=== PATIENT | male | born 1970 | race Caucasian/White ===

== ENCOUNTER 2018-03-18 08:05 | Inpatient (IN) | payer MEDICAID ==
[~2018-03-18] VITALS: Ht 190.5 cm; Wt 133.4 kg
[~2018-03-18 08:05] MED LIST: DIVA125T2 PO; HYDR-3307 PO; NAPR-685 PO; PROP10TA PO; SERT50TA5 PO; TRAZ-137 PO
[2018-03-18] MEDS ORDERED: PLEASE ENTER HEIGHT AND WEIGHT MC SCH (08:30)
[2018-03-18] MEDS ORDERED: ONDANSETRON 2MG/ML, 2ML IVPush ONE (08:30)
[2018-03-18] MEDS ORDERED: SODIUM CHLORIDE 0.9% 1,000ML IVBOLUS ONE (08:30)
[2018-03-18 08:50] LABS: BASOPHILS # (AUTO) 0.02 x10^3/uL (0-0.1); BASOPHILS % (AUTO) 0 % (0-1); EOSINOPHILS # (AUTO) 0.02 x10^3/uL (0-0.4); EOSINOPHILS % (AUTO) 0 % (1-7); LYMPHOCYTES # (AUTO) 1.45 x10^3/uL (1-3.4); LYMPHOCYTES % (AUTO) 12 % (22-44); MD NO; MEAN CORPUSCULAR HEMOGLOBIN 30.1 pg (27.5-34.5); MEAN CORPUSCULAR HGB CONC 33.9 g/dL (33.2-36.2); MEAN CORPUSCULAR VOLUME 88.7 fL (81-97); MEAN PLATELET VOLUME 8.2 fL (7.4-10.4); MONOCYTES # (AUTO) 0.81 x10^3/uL (0.2-0.8); MONOCYTES % (AUTO) 7 % (2-9); NEUTROPHILS # (AUTO) 9.76 x10^3/uL (1.8-6.8); NEUTROPHILS % (AUTO) 81 % (42-75); PLATELET COUNT 289 x10^3/uL (130-400); RED BLOOD COUNT 4.89 x10^6/uL (4.38-5.82); RED CELL DISTRIBUTION WIDTH 13.8 % (9.4-14.8)
[2018-03-18] MEDS ORDERED: ONDANSETRON 2MG/ML, 2ML ONE (08:56)
[2018-03-18 09:01] LABS: AMPHETAMINE SCREEN, URINE Negative (Negative); BARBITURATE SCREEN, URINE Negative (Negative); BENZODIAZEPINE SCREEN, URINE Positive (Negative); CANNABINOID SCREEN, URINE Positive (Negative); COCAINE SCREEN, URINE Negative (Negative); METHADONE SCREEN, URINE Negative (Negative); OPIATE SCREEN, URINE Negative (Negative)
[2018-03-18 09:03] LABS: ALBUMIN 3.5 g/dL (3.4-5.0); ANION GAP 8 mmol/L (5-15); CALCIUM 8.3 mg/dL (8.5-10.1); CHLORIDE 97 mmol/L (98-107); CREATININE 1.85 mg/dL (0.7-1.3)
[2018-03-18 09:06] LABS: MICROSCOPIC INDICATED
[2018-03-18 09:08] LABS: ALKALINE PHOSPHATASE 102 U/L (45-117); BILIRUBIN,TOTAL 0.6 mg/dL (0.2-1.0); FREE T4 (FREE THYROXINE) 0.93 ng/dL (0.76-1.46); TOTAL PROTEIN 8.7 g/dL (6.4-8.2)
[2018-03-18 09:20] LABS: CULTURE INDICATED? NO
[2018-03-18] MEDS ORDERED: OMNIPAQUE 350 MG/ML, 150 ML BOTTLE ONE (09:35)
[2018-03-18 09:36] LABS: ALANINE AMINOTRANSFERASE 6238 U/L (12-78)
[2018-03-18] MEDS ORDERED: HEPARIN 5,000 UNITS/ML, 1ML IV ONE (10:00)
[2018-03-18 10:49] LABS: ACETAMINOPHEN < 2 mcg/mL (10-30); SALICYLATE LEVEL < 1.7 mg/dL (2.8-20.0)
[2018-03-18 10:54] LABS: CREATINE KINASE, TOTAL 167 U/L (39-308)
[2018-03-18] MEDS ORDERED: HEPARIN 25,000 UNITS/500ML PMX 500 ML ONE (10:54)
[2018-03-18] MEDS ORDERED: HEPARIN 5,000 UNITS/ML, 1ML ONE (10:54)
[2018-03-18] MEDS: HEPARIN 5,000 UNITS/ML, 1ML IV PRN ×2 (11:10→18:09)
[2018-03-18] MEDS: HEPARIN 25,000 UNITS/500ML PMX 500 ML IV PRN (11:13)
[2018-03-18] MEDS ORDERED: POLYETHYLENE GLYCOL 17 GM PACKET PO PRN (12:00)
[2018-03-18] MEDS ORDERED: BISACODYL 10 MG SUPP PR PRN (12:00)
[2018-03-18] MEDS ORDERED: ONDANSETRON ODT 4 MG PO PRN (12:00)
[2018-03-18] MEDS ORDERED: ONDANSETRON 2MG/ML, 2ML IVPush PRN (12:00)
[2018-03-18] MEDS ORDERED: morphine SULFATE 10 MG/ML, 1ML IVPush PRN (12:00)
[2018-03-18 12:58] LABS: CREATINE KINASE, TOTAL 162 U/L (39-308)
[2018-03-18 12:59] LABS: ACETAMINOPHEN < 2 mcg/mL (10-30); SALICYLATE LEVEL < 1.7 mg/dL (2.8-20.0)
[2018-03-18 13:29] LABS: O2 FLOW 6 L/min
[2018-03-18 13:42] LABS: ALBUMIN 3.2 g/dL (3.4-5.0); BILIRUBIN, DIRECT 0.3 mg/dL (0.1-0.2)
[2018-03-18 13:59] LABS: BILIRUBIN,INDIRECT 0.4 mg/dL (0.0-2.0); BILIRUBIN,TOTAL 0.7 mg/dL (0.2-1.0); TOTAL PROTEIN 8.1 g/dL (6.4-8.2)
[2018-03-18 14:30] VITALS: BP 122/68
[2018-03-18] MEDS: SODIUM CHLORIDE 0.9% 1,000 ML IV SCH (15:48)
[2018-03-18] MEDS: LACTULOSE 20 GM/30 ML UDC PO SCH ×2 (16:19→21:00)
[2018-03-18] MEDS ORDERED: CEFTRIAXONE 1,000 MG IV SCH (18:00)
[2018-03-18] MEDS ORDERED: CEFTRIAXONE PMX 1GM/50ML 50 ML IV SCH (18:00)
[2018-03-18] MEDS: DOXYCYCLINE 100 MG in DEXTROSE 5% 250 ML IV SCH (19:08)
[2018-03-18] MEDS ORDERED: FAMOTIDINE 20 MG TABLET PO SCH (21:00)
[2018-03-18] MEDS ORDERED: TRAZODONE 150MG TABLET PO SCH (21:00)
[2018-03-18] MEDS ORDERED: DIVALPROEX 125 MG TABLET.DR PO SCH (21:00)
[2018-03-19] MEDS: SODIUM CHLORIDE 0.9% 1,000 ML IV SCH ×4 (01:35→20:05)
[2018-03-19] MEDS: HEPARIN 5,000 UNITS/ML, 1ML IV PRN ×2 (01:55→10:27)
[2018-03-19 04:44] LABS: BASOPHILS # (AUTO) 0.03 x10^3/uL (0-0.1); BASOPHILS % (AUTO) 0 % (0-1); EOSINOPHILS # (AUTO) 0.36 x10^3/uL (0-0.4); EOSINOPHILS % (AUTO) 4 % (1-7); LYMPHOCYTES # (AUTO) 1.43 x10^3/uL (1-3.4); LYMPHOCYTES % (AUTO) 17 % (22-44); MD NO; MEAN CORPUSCULAR HEMOGLOBIN 30.3 pg (27.5-34.5); MEAN CORPUSCULAR HGB CONC 33.7 g/dL (33.2-36.2); MEAN CORPUSCULAR VOLUME 89.8 fL (81-97); MEAN PLATELET VOLUME 7.9 fL (7.4-10.4); MONOCYTES # (AUTO) 0.28 x10^3/uL (0.2-0.8); MONOCYTES % (AUTO) 3 % (2-9); NEUTROPHILS # (AUTO) 6.55 x10^3/uL (1.8-6.8); NEUTROPHILS % (AUTO) 76 % (42-75); PLATELET COUNT 243 x10^3/uL (130-400); RED CELL DISTRIBUTION WIDTH 13.6 % (9.4-14.8)
[2018-03-19 04:51] LABS: INTERNATIONAL NORMALIZED RATIO 1.27 (0.93-1.1); PROTHROMBIN TIME 13.1 Seconds (9.6-11.5)
[2018-03-19 04:56] LABS: ALBUMIN 2.9 g/dL (3.4-5.0); ANION GAP 4 mmol/L (5-15); CALCIUM 7.8 mg/dL (8.5-10.1); CHLORIDE 101 mmol/L (98-107)
[2018-03-19] MEDS: HEPARIN 25,000 UNITS/500ML PMX 500 ML IV PRN ×2 (05:03→17:31)
[2018-03-19 05:14] LABS: ALANINE AMINOTRANSFERASE 4565 U/L (12-78); ALKALINE PHOSPHATASE 93 U/L (45-117); BILIRUBIN,TOTAL 0.8 mg/dL (0.2-1.0); CHOL/HDL RATIO 4.6; CHOLESTEROL, TOTAL 97 mg/dL (140-239); CREATININE 0.79 mg/dL (0.7-1.3); HDL CHOL % 22 % (26-37); HDL CHOLESTEROL (DIRECT) 21 mg/dL (40-60); LDL CHOLESTEROL,CALCULATED 44 mg/dL (54-169); LDL/HDL RATIO 2.1 (0.5-3.0); TOTAL PROTEIN 7.5 g/dL (6.4-8.2); TRIGLYCERIDES 162 mg/dL (50-200); VLDL CHOLESTEROL 32 mg/dL (0-25)
[2018-03-19] MEDS: ASPIRIN 325 MG TABLET EC PO SCH (06:00)
[2018-03-19] MEDS: DOXYCYCLINE 100 MG in DEXTROSE 5% 250 ML IV SCH (07:14)
[2018-03-19] MEDS: SENNA/DOCUSATE TABLET PO SCH (08:16)
[2018-03-19] MEDS: LACTULOSE 20 GM/30 ML UDC PO SCH ×2 (08:17→20:13)
[2018-03-19] MEDS ORDERED: POTASSIUM PHOSPHATE 44 MEQ in SODIUM CHLORIDE 0.9% 500 ML IV ONE (11:00)
[2018-03-19] MEDS: OXYcodone IR 5MG TABLET PO PRN ×4 (11:45→22:07)
[2018-03-19 19:09] VITALS: BP 143/79
[2018-03-19] MEDS: PROPRANOLOL 10 MG TABLET PO SCH (20:13)
[2018-03-20 00:01] VITALS: BP 123/71
[2018-03-20] MEDS: HEPARIN 5,000 UNITS/ML, 1ML IV PRN (00:10)
[2018-03-20] MEDS: SODIUM CHLORIDE 0.9% 1,000 ML IV SCH ×2 (03:25→13:30)
[2018-03-20] MEDS: OXYcodone IR 5MG TABLET PO PRN ×4 (05:39→23:45)
[2018-03-20] MEDS: ASPIRIN 325 MG TABLET EC PO SCH (05:39)
[2018-03-20 06:24] LABS: BASOPHILS # (AUTO) 0.02 x10^3/uL (0-0.1); BASOPHILS % (AUTO) 0 % (0-1); EOSINOPHILS # (AUTO) 0.71 x10^3/uL (0-0.4); EOSINOPHILS % (AUTO) 8 % (1-7); LYMPHOCYTES # (AUTO) 1.86 x10^3/uL (1-3.4); LYMPHOCYTES % (AUTO) 21 % (22-44); MD NO; MEAN CORPUSCULAR HEMOGLOBIN 30.8 pg (27.5-34.5); MEAN CORPUSCULAR HGB CONC 34.4 g/dL (33.2-36.2); MEAN CORPUSCULAR VOLUME 89.3 fL (81-97); MEAN PLATELET VOLUME 7.8 fL (7.4-10.4); MONOCYTES # (AUTO) 0.38 x10^3/uL (0.2-0.8); MONOCYTES % (AUTO) 4 % (2-9); NEUTROPHILS # (AUTO) 5.96 x10^3/uL (1.8-6.8); NEUTROPHILS % (AUTO) 67 % (42-75); PLATELET COUNT 240 x10^3/uL (130-400); RED BLOOD COUNT 4.41 x10^6/uL (4.38-5.82); RED CELL DISTRIBUTION WIDTH 13.3 % (9.4-14.8)
[2018-03-20 06:28] LABS: ALBUMIN 2.7 g/dL (3.4-5.0); ANION GAP 5 mmol/L (5-15); CALCIUM 8.1 mg/dL (8.5-10.1); CHLORIDE 101 mmol/L (98-107); CREATININE 0.68 mg/dL (0.7-1.3)
[2018-03-20 06:36] LABS: ALANINE AMINOTRANSFERASE 2845 U/L (12-78); ALKALINE PHOSPHATASE 86 U/L (45-117); BILIRUBIN,TOTAL 0.9 mg/dL (0.2-1.0); TOTAL PROTEIN 7.4 g/dL (6.4-8.2)
[2018-03-20] MEDS: HEPARIN 25,000 UNITS/500ML PMX 500 ML IV PRN (07:53)
[2018-03-20 08:08] VITALS: BP 127/73
[2018-03-20] MEDS: LACTULOSE 20 GM/30 ML UDC PO SCH ×2 (09:35→19:48)
[2018-03-20] MEDS: PROPRANOLOL 10 MG TABLET PO SCH ×2 (09:35→19:48)
[2018-03-20] MEDS: SENNA/DOCUSATE TABLET PO SCH (09:35)
[2018-03-20] MEDS ORDERED: DIAZEPAM 5 MG/ML, 2ML IV ONE (13:30)
[2018-03-20 14:19] VITALS: BP 124/73
[2018-03-20 19:25] VITALS: BP 142/84
[2018-03-21] VITALS: BP 131/83
[2018-03-21 04:06] VITALS: BP 136/73
[2018-03-21] MEDS: LORazepam 1MG TABLET PO PRN (04:07)
[2018-03-21] MEDS: ASPIRIN 325 MG TABLET EC PO SCH (05:03)
[2018-03-21 05:55] LABS: ALBUMIN 2.9 g/dL (3.4-5.0); ANION GAP 5 mmol/L (5-15); CALCIUM 8.6 mg/dL (8.5-10.1); CHLORIDE 101 mmol/L (98-107)
[2018-03-21 06:04] LABS: ALANINE AMINOTRANSFERASE 2032 U/L (12-78); ALKALINE PHOSPHATASE 92 U/L (45-117); BILIRUBIN,TOTAL 1.1 mg/dL (0.2-1.0); CREATININE 0.67 mg/dL (0.7-1.3); TOTAL PROTEIN 7.5 g/dL (6.4-8.2)
[2018-03-21] MEDS ORDERED: REGADENOSON 0.4 MG/5 ML SYRINGE ONE (08:45)
[2018-03-21 08:47] VITALS: BP 128/76
[2018-03-21] MEDS: OXYcodone IR 5MG TABLET PO PRN ×3 (11:07→21:37)
[2018-03-21] MEDS: LACTULOSE 20 GM/30 ML UDC PO SCH ×2 (11:07→21:37)
[2018-03-21] MEDS: PROPRANOLOL 10 MG TABLET PO SCH ×2 (11:08→21:37)
[2018-03-21] MEDS: SENNA/DOCUSATE TABLET PO SCH (11:08)
[2018-03-21 15:52] VITALS: BP 128/75
[2018-03-21 19:00] VITALS: BP 119/67
[2018-03-22 02:13] VITALS: BP 104/63
[2018-03-22 04:51] LABS: ALBUMIN 2.9 g/dL (3.4-5.0); ANION GAP 6 mmol/L (5-15); CALCIUM 8.8 mg/dL (8.5-10.1); CHLORIDE 103 mmol/L (98-107); CREATININE 0.85 mg/dL (0.7-1.3)
[2018-03-22 05:04] LABS: ALANINE AMINOTRANSFERASE 1464 U/L (12-78); ALKALINE PHOSPHATASE 102 U/L (45-117); BILIRUBIN,TOTAL 0.8 mg/dL (0.2-1.0); TOTAL PROTEIN 8.2 g/dL (6.4-8.2)
[2018-03-22] MEDS: ASPIRIN 325 MG TABLET EC PO SCH (06:21)
[2018-03-22] MEDS: OXYcodone IR 5MG TABLET PO PRN ×2 (06:25→21:54)
[2018-03-22 06:55] VITALS: BP 131/80
[2018-03-22] MEDS: LACTULOSE 20 GM/30 ML UDC PO SCH ×4 (07:52→21:53)
[2018-03-22] MEDS: PROPRANOLOL 10 MG TABLET PO SCH ×2 (07:52→21:53)
[2018-03-22] MEDS: SENNA/DOCUSATE TABLET PO SCH (07:52)
[2018-03-22] MEDS: LORazepam 1MG TABLET PO PRN (11:52)
[2018-03-22] MEDS ORDERED: MINERA CRM, 60GM TP PRN (13:00)
[2018-03-22 13:18] VITALS: BP 121/78
[2018-03-22] MEDS ORDERED: FENTANYL PF 100 MCG/2ML ONE ×2 (14:09→14:10)
[2018-03-22] MEDS ORDERED: MIDAZOLAM 1 MG/ML, 5ML ONE ×2 (14:10)
[2018-03-22] MEDS ORDERED: NALOXONE 1 MG/ML, 2ML ONE (14:10)
[2018-03-22] MEDS ORDERED: FLUMAZENIL 0.1 MG/1 ML, 5ML ONE (14:10)
[2018-03-22] MEDS ORDERED: GADOBUTROL 10 MMOL/10 ML VIAL ONE (17:56)
[2018-03-22 19:00] VITALS: BP 121/76
[2018-03-23 01:14] VITALS: BP 116/79
[2018-03-23 05:26] LABS: BASOPHILS # (AUTO) 0.04 x10^3/uL (0-0.1); BASOPHILS % (AUTO) 0 % (0-1); EOSINOPHILS # (AUTO) 0.73 x10^3/uL (0-0.4); EOSINOPHILS % (AUTO) 8 % (1-7); LYMPHOCYTES # (AUTO) 2.36 x10^3/uL (1-3.4); LYMPHOCYTES % (AUTO) 24 % (22-44); MD NO; MEAN CORPUSCULAR HEMOGLOBIN 30.6 pg (27.5-34.5); MEAN CORPUSCULAR HGB CONC 34.4 g/dL (33.2-36.2); MEAN CORPUSCULAR VOLUME 89.2 fL (81-97); MEAN PLATELET VOLUME 7.4 fL (7.4-10.4); MONOCYTES # (AUTO) 0.63 x10^3/uL (0.2-0.8); MONOCYTES % (AUTO) 7 % (2-9); NEUTROPHILS # (AUTO) 5.93 x10^3/uL (1.8-6.8); NEUTROPHILS % (AUTO) 61 % (42-75); PLATELET COUNT 263 x10^3/uL (130-400); RED BLOOD COUNT 4.82 x10^6/uL (4.38-5.82); RED CELL DISTRIBUTION WIDTH 13.8 % (9.4-14.8)
[2018-03-23] MEDS: OXYcodone IR 5MG TABLET PO PRN ×3 (05:29→21:16)
[2018-03-23] MEDS: ASPIRIN 325 MG TABLET EC PO SCH (05:29)
[2018-03-23 05:35] LABS: INTERNATIONAL NORMALIZED RATIO 1.13 (0.93-1.1); PROTHROMBIN TIME 11.7 Seconds (9.6-11.5)
[2018-03-23 05:38] LABS: ALBUMIN 3.2 g/dL (3.4-5.0); ANION GAP 6 mmol/L (5-15); CALCIUM 8.8 mg/dL (8.5-10.1); CHLORIDE 102 mmol/L (98-107)
[2018-03-23 05:47] LABS: ALANINE AMINOTRANSFERASE 1122 U/L (12-78); ALKALINE PHOSPHATASE 95 U/L (45-117); BILIRUBIN,TOTAL 0.8 mg/dL (0.2-1.0); CREATININE 0.83 mg/dL (0.7-1.3)
[2018-03-23 07:49] VITALS: BP 97/59
[2018-03-23] MEDS: LACTULOSE 20 GM/30 ML UDC PO SCH ×3 (08:49→21:16)
[2018-03-23] MEDS: PROPRANOLOL 10 MG TABLET PO SCH ×2 (08:49→21:16)
[2018-03-23] MEDS: SENNA/DOCUSATE TABLET PO SCH (08:49)
[2018-03-23] MEDS: ARIPIPRAZOLE 10 MG TABLET PO SCH (12:18)
[2018-03-23 12:24] VITALS: BP 118/80
[2018-03-23 17:38] VITALS: BP 106/69
[2018-03-24 02:07] VITALS: BP 133/77
[2018-03-24] MEDS: ASPIRIN 325 MG TABLET EC PO SCH (05:28)
[2018-03-24 05:33] LABS: ALBUMIN 3.1 g/dL (3.4-5.0); ANION GAP 8 mmol/L (5-15); CALCIUM 9.1 mg/dL (8.5-10.1); CHLORIDE 104 mmol/L (98-107)
[2018-03-24 05:38] LABS: ALANINE AMINOTRANSFERASE 792 U/L (12-78); ALKALINE PHOSPHATASE 88 U/L (45-117); BILIRUBIN,TOTAL 0.6 mg/dL (0.2-1.0); CREATININE 0.78 mg/dL (0.7-1.3); TOTAL PROTEIN 8.3 g/dL (6.4-8.2)
[2018-03-24 08:00] VITALS: BP 113/72
[2018-03-24] MEDS: SENNA/DOCUSATE TABLET PO SCH ×2 (09:00→09:24)
[2018-03-24] MEDS: ARIPIPRAZOLE 10 MG TABLET PO SCH (09:23)
[2018-03-24] MEDS: LACTULOSE 20 GM/30 ML UDC PO SCH ×3 (09:23→20:07)
[2018-03-24] MEDS: LORazepam 1MG TABLET PO PRN (09:24)
[2018-03-24] MEDS: PROPRANOLOL 10 MG TABLET PO SCH ×2 (09:24→20:07)
[2018-03-24] MEDS: OXYcodone IR 5MG TABLET PO PRN ×2 (09:24→19:27)
[2018-03-24 13:54] VITALS: BP 117/68
[2018-03-24] MEDS ORDERED: ASPI-650 PO (17:49)
[2018-03-24] MEDS ORDERED: LACT20SO13 PO (17:49)
[2018-03-24] MEDS ORDERED: LORA-446 PO (17:49)
[2018-03-24] MEDS ORDERED: ARIP10TA33 PO (17:49)
[2018-03-24 19:19] VITALS: BP 115/75
[2018-03-25 02:01] VITALS: BP 123/79
[2018-03-25] MEDS: ASPIRIN 325 MG TABLET EC PO SCH (05:07)
[2018-03-25 06:27] LABS: ALBUMIN 3.1 g/dL (3.4-5.0); ANION GAP 9 mmol/L (5-15); CALCIUM 9.4 mg/dL (8.5-10.1); CHLORIDE 105 mmol/L (98-107)
[2018-03-25 06:33] LABS: ALANINE AMINOTRANSFERASE 557 U/L (12-78); ALKALINE PHOSPHATASE 83 U/L (45-117); BILIRUBIN,TOTAL 0.5 mg/dL (0.2-1.0); CREATININE 0.88 mg/dL (0.7-1.3); TOTAL PROTEIN 8.2 g/dL (6.4-8.2)
== END 2018-03-25 06:10 | DRG 441 ==
LOC: ED 10:47 → EDIP 11:22 → ICU 14:25 → 5SO 03-19 18:48 → 3NE 03-23 16:43
PROVIDERS: ADMIT Internal Medicine; ATTEND Internal Medicine
PROC: 5A09357 Assistance with Respiratory Ventilation, Less than 24 Consecutive Hours, Continuous Positive Airway Pressure (ICD-10-PCS; principal; 2018-03-18)
DX: K72.00 Acute and subacute hepatic failure without coma (principal); I21.4 Non-ST elevation (NSTEMI) myocardial infarction; G93.41 Metabolic encephalopathy; J96.01 Acute respiratory failure with hypoxia; N17.0 Acute kidney failure with tubular necrosis; E87.2 Acidosis; J98.11 Atelectasis; B19.20 Unspecified viral hepatitis C without hepatic coma; D18.03 Hemangioma of intra-abdominal structures; E66.9 Obesity, unspecified; Z68.36 Body mass index [BMI] 36.0-36.9, adult; E78.5 Hyperlipidemia, unspecified; F10.21 Alcohol dependence, in remission; F12.90 Cannabis use, unspecified, uncomplicated; F15.90 Other stimulant use, unspecified, uncomplicated; F31.9 Bipolar disorder, unspecified; G89.4 Chronic pain syndrome; Z96.612 Presence of left artificial shoulder joint; Z96.659 Presence of unspecified artificial knee joint; I11.9 Hypertensive heart disease without heart failure; J06.9 Acute upper respiratory infection, unspecified; T50.995A Adverse effect of other drugs, medicaments and biological substances, initial encounter; F29 Unspecified psychosis not due to a substance or known physiological condition; F39 Unspecified mood [affective] disorder; K71.9 Toxic liver disease, unspecified; K75.89 Other specified inflammatory liver diseases; K76.0 Fatty (change of) liver, not elsewhere classified; Z59.0 Homelessness; Z79.899 Other long term (current) drug therapy; Z81.1 Family history of alcohol abuse and dependence; Z81.8 Family history of other mental and behavioral disorders; Z87.01 Personal history of pneumonia (recurrent); Z87.891 Personal history of nicotine dependence; Z90.49 Acquired absence of other specified parts of digestive tract; Y92.89 Other specified places as the place of occurrence of the external cause
CPT/HCPCS: 36415; 36600; 70450; 71045; 71275; 74183; 76700; 78452; 80053; 80061; 80074; 80076; 80164; 80307; 80329; 81001; 82140; 82550; 82803; 83605; 83690; 83735; 84100; 84145; 84439; 84443; 84484; 85025; 85520; 85610; 87040; 87081; 87521; 87806; 93005; 93017; 96361; 96374; 96375; A9585; C8929; G0378; J0696; J1644; J2250; J2405; J2785; J3010; J3360; J7060; Q9957; Q9967; A9502; C9898; G0475; G0480; J2270; J2310; J7030; J7040

== ENCOUNTER 2018-03-24 15:58 | Inpatient (IN) | payer MEDICAID ==
[~2018-03-24] VITALS: Ht 190.5 cm; Wt 131.8 kg
[2018-03-24] MEDS ORDERED: POLYETHYLENE GLYCOL 17 GM PACKET PO PRN (17:00)
[2018-03-24] MEDS ORDERED: LORA-446 PO (17:49)
[2018-03-24] MEDS ORDERED: LACT20SO13 PO (17:49)
[2018-03-24] MEDS ORDERED: ARIP10TA33 PO (17:49)
[2018-03-24] MEDS ORDERED: ASPI-650 PO (17:49)
[2018-03-25 06:18] VITALS: BP_SYST 120; BP_SYST 123; BP_SYST 137; BP_DIAS 72; BP_DIAS 77; BP_DIAS 78
[2018-03-25] MEDS: PLEASE ENTER HEIGHT AND WEIGHT MC SCH ×2 (06:24→06:26)
[2018-03-25 07:26] LABS: CHOL/HDL RATIO 8.4; FREE T4 (FREE THYROXINE) 1.07 ng/dL (0.76-1.46); LDL/HDL RATIO 5.5 (0.5-3.0); THYROID STIMULATING HORMONE 7.54 mIU/L (0.358-3.740)
[2018-03-25 07:28] VITALS: BP 122/78
[2018-03-25 10:21] VITALS: BP 120/77
[2018-03-25] MEDS: PROPRANOLOL 10 MG TABLET PO SCH ×2 (11:21→20:18)
[2018-03-25] MEDS ORDERED: OXYcodone IR 5MG TABLET PO ONE (11:30)
[2018-03-25 19:20] VITALS: BP 111/72
[2018-03-25] MEDS: TRAZODONE 50MG TABLET PO PRN ×2 (19:46→23:14)
[2018-03-26 08:28] VITALS: BP 123/79
[2018-03-26] MEDS: PROPRANOLOL 10 MG TABLET PO SCH ×2 (09:06→19:53)
[2018-03-26] MEDS: ARIPIPRAZOLE 10 MG TABLET PO SCH (09:06)
[2018-03-26] MEDS: NICOTINE 14MG/24 HR PATCH.TD24 TD SCH (09:06)
[2018-03-26] MEDS: OXYcodone IR 5MG TABLET PO PRN ×3 (11:34→19:53)
[2018-03-26 19:43] VITALS: BP 104/67
[2018-03-26] MEDS: TRAZODONE 50MG TABLET PO PRN (19:53)
[2018-03-26] MEDS: DOCUSATE 100 MG CAPSULE PO PRN (19:59)
[2018-03-27 07:16] VITALS: BP 110/73
[2018-03-27] MEDS: ARIPIPRAZOLE 10 MG TABLET PO SCH (08:22)
[2018-03-27] MEDS: OXYcodone IR 5MG TABLET PO PRN ×4 (08:22→20:20)
[2018-03-27] MEDS: PROPRANOLOL 10 MG TABLET PO SCH ×2 (08:22→20:21)
[2018-03-27] MEDS: NICOTINE 14MG/24 HR PATCH.TD24 TD SCH (08:22)
[2018-03-27 19:30] VITALS: BP 137/87
[2018-03-27] MEDS: DOCUSATE 100 MG CAPSULE PO PRN (20:20)
[2018-03-27] MEDS: TRAZODONE 50MG TABLET PO PRN (20:20)
[2018-03-28] MEDS: ACETAMINOPHEN 325 MG TABLET PO PRN ×2 (00:57→18:19)
[2018-03-28 07:55] VITALS: BP 128/87
[2018-03-28] MEDS: OXYcodone IR 5MG TABLET PO PRN ×3 (08:34→20:37)
[2018-03-28] MEDS: ARIPIPRAZOLE 10 MG TABLET PO SCH (08:34)
[2018-03-28] MEDS: PROPRANOLOL 10 MG TABLET PO SCH ×2 (08:34→20:37)
[2018-03-28] MEDS: NICOTINE 14MG/24 HR PATCH.TD24 TD SCH (08:34)
[2018-03-28] MEDS: DOCUSATE 100 MG CAPSULE PO PRN (11:15)
[2018-03-28 19:55] VITALS: BP 105/64
[2018-03-28] MEDS: TRAZODONE 50MG TABLET PO PRN (20:37)
[2018-03-29 07:51] VITALS: BP 148/89
[2018-03-29] MEDS: ARIPIPRAZOLE 10 MG TABLET PO SCH (08:13)
[2018-03-29] MEDS: PROPRANOLOL 10 MG TABLET PO SCH ×2 (08:14→20:18)
[2018-03-29] MEDS: NICOTINE 14MG/24 HR PATCH.TD24 TD SCH (08:14)
[2018-03-29] MEDS: OXYcodone IR 5MG TABLET PO PRN ×3 (08:16→20:19)
[2018-03-29] MEDS: ACETAMINOPHEN 325 MG TABLET PO PRN (11:42)
[2018-03-29 19:31] VITALS: BP 115/78
[2018-03-29] MEDS: TRAZODONE 50MG TABLET PO PRN (20:18)
[2018-03-30] MEDS: OXYcodone IR 5MG TABLET PO PRN ×3 (05:30→17:58)
[2018-03-30 07:45] VITALS: BP 109/78
[2018-03-30] MEDS: NICOTINE 14MG/24 HR PATCH.TD24 TD SCH (08:56)
[2018-03-30] MEDS: PROPRANOLOL 10 MG TABLET PO SCH ×2 (08:56→20:09)
[2018-03-30] MEDS: ARIPIPRAZOLE 10 MG TABLET PO SCH (08:56)
[2018-03-30 19:49] VITALS: BP 124/77
[2018-03-30] MEDS: TRAZODONE 50MG TABLET PO PRN (20:09)
[2018-03-31] MEDS: OXYcodone IR 5MG TABLET PO PRN ×2 (01:14→08:33)
[2018-03-31 07:58] VITALS: BP 108/70
[2018-03-31] MEDS: PROPRANOLOL 10 MG TABLET PO SCH (08:23)
[2018-03-31] MEDS: ARIPIPRAZOLE 10 MG TABLET PO SCH (08:23)
[2018-03-31] MEDS: NICOTINE 14MG/24 HR PATCH.TD24 TD SCH (08:23)
[2018-03-31] MEDS ORDERED: TRAZ-137 PO ×2 (11:18→11:45)
[2018-03-31] MEDS ORDERED: NICO-486 TD (11:45)
== END 2018-03-31 15:15 | disposition home or self-care (01) | DRG 885 ==
LOC: 3E 16:44
PROVIDERS: ADMIT Psychiatry & Neurology Psychosomatic Medicine; ATTEND Psychiatry & Neurology Psychosomatic Medicine
DX: F31.9 Bipolar disorder, unspecified (principal); D18.03 Hemangioma of intra-abdominal structures; B19.20 Unspecified viral hepatitis C without hepatic coma; E66.9 Obesity, unspecified; E78.5 Hyperlipidemia, unspecified; F10.20 Alcohol dependence, uncomplicated; F41.9 Anxiety disorder, unspecified; G47.00 Insomnia, unspecified; G89.4 Chronic pain syndrome; I10 Essential (primary) hypertension; K76.0 Fatty (change of) liver, not elsewhere classified; R09.02 Hypoxemia; Z79.899 Other long term (current) drug therapy; F12.20 Cannabis dependence, uncomplicated; F17.210 Nicotine dependence, cigarettes, uncomplicated; Z68.36 Body mass index [BMI] 36.0-36.9, adult
CPT/HCPCS: 36415; 80061; 82140; 82607; 83690; 84439; 84443; 86592; 93005; 92523-GN

== ENCOUNTER 2018-04-12 14:09 | Emergency (ER) | payer MEDICAID ==
[~2018-04-12] VITALS: Ht 190.5 cm; Wt 136.2 kg
[~2018-04-12 14:09] MED LIST changes: +ARIP10TA33 PO; +ASPI-650 PO; +LACT20SO13 PO; +LORA-446 PO; +NICO-486 TD
[2018-04-12 14:16] VITALS: BP 144/87
[2018-04-12] MEDS ORDERED: ASPIRIN 81 MG TABLET CHEW PO ONE (14:30)
[2018-04-12] MEDS ORDERED: ASPIRIN 81 MG TABLET CHEW ONE (14:53)
[2018-04-12] MEDS ORDERED: ACETAMINOPHEN 500 MG TABLET ONE (14:53)
[2018-04-12] MEDS ORDERED: ONDANSETRON ODT 8 MG ONE (14:53)
[2018-04-12 15:00] LABS: BASOPHILS # (AUTO) 0.08 x10^3/uL (0-0.1); BASOPHILS % (AUTO) 1 % (0-1); EOSINOPHILS # (AUTO) 0.46 x10^3/uL (0-0.4); EOSINOPHILS % (AUTO) 6 % (1-7); LYMPHOCYTES # (AUTO) 2.67 x10^3/uL (1-3.4); LYMPHOCYTES % (AUTO) 37 % (22-44); MD NO; MEAN CORPUSCULAR HEMOGLOBIN 30.4 pg (27.5-34.5); MEAN CORPUSCULAR VOLUME 89.4 fL (81-97); MEAN PLATELET VOLUME 7.6 fL (7.4-10.4); MONOCYTES # (AUTO) 0.44 x10^3/uL (0.2-0.8); MONOCYTES % (AUTO) 6 % (2-9); NEUTROPHILS # (AUTO) 3.67 x10^3/uL (1.8-6.8); NEUTROPHILS % (AUTO) 50 % (42-75); PLATELET COUNT 387 x10^3/uL (130-400); RED BLOOD COUNT 4.47 x10^6/uL (4.38-5.82)
[2018-04-12] MEDS ORDERED: ONDANSETRON ODT 8 MG PO ONE (15:00)
[2018-04-12] MEDS ORDERED: ACETAMINOPHEN 500 MG TABLET PO ONE (15:00)
[2018-04-12 15:07] LABS: ALBUMIN 3.2 g/dL (3.4-5.0); ANION GAP 8 mmol/L (5-15); CALCIUM 8.3 mg/dL (8.5-10.1); CHLORIDE 108 mmol/L (98-107); CREATININE 0.82 mg/dL (0.7-1.3)
[2018-04-12 15:10] LABS: TROPONIN I < 0.015 ng/mL (0.000-0.045)
[2018-04-12 15:30] LABS: ALBUMIN 3.1 g/dL (3.4-5.0); BILIRUBIN, DIRECT 0.1 mg/dL (0.1-0.2)
[2018-04-12 15:33] LABS: BILIRUBIN,INDIRECT 0.1 mg/dL (0.0-2.0); BILIRUBIN,TOTAL 0.2 mg/dL (0.2-1.0); TOTAL PROTEIN 7.6 g/dL (6.4-8.2)
== END 2018-04-12 16:24 | disposition home or self-care (01) ==
LOC: ED 14:57
DX: R07.89 Other chest pain (principal); R06.02 Shortness of breath; R42 Dizziness and giddiness
CPT/HCPCS: 36415; 71046; 80048; 80076; 82040; 83690; 83880; 84484; 85025; 93005; 99284; Q0162

== ENCOUNTER 2018-04-12 16:39 | Observation (INO) | payer MEDICAID ==
[~2018-04-12] VITALS: Ht 190.5 cm; Wt 127.5 kg
[2018-04-12 18:09] LABS: ALBUMIN 3.1 g/dL (3.4-5.0); ANION GAP 8 mmol/L (5-15); CALCIUM 8.3 mg/dL (8.5-10.1); CHLORIDE 107 mmol/L (98-107)
[2018-04-12 18:13] LABS: ALANINE AMINOTRANSFERASE 34 U/L (12-78); ALKALINE PHOSPHATASE 70 U/L (45-117); BILIRUBIN,TOTAL 0.3 mg/dL (0.2-1.0); CREATININE 1.03 mg/dL (0.7-1.3); TOTAL PROTEIN 7.4 g/dL (6.4-8.2)
[2018-04-12 18:16] LABS: ACETAMINOPHEN < 2 mcg/mL (10-30); SALICYLATE LEVEL < 1.7 mg/dL (2.8-20.0)
[2018-04-12 18:19] LABS: BASOPHILS # (AUTO) 0.04 x10^3/uL (0-0.1); BASOPHILS % (AUTO) 1 % (0-1); EOSINOPHILS # (AUTO) 0.55 x10^3/uL (0-0.4); EOSINOPHILS % (AUTO) 7 % (1-7); LYMPHOCYTES # (AUTO) 3.09 x10^3/uL (1-3.4); LYMPHOCYTES % (AUTO) 40 % (22-44); MD NO; MEAN CORPUSCULAR HEMOGLOBIN 29.8 pg (27.5-34.5); MEAN CORPUSCULAR HGB CONC 33.3 g/dL (33.2-36.2); MEAN CORPUSCULAR VOLUME 89.6 fL (81-97); MEAN PLATELET VOLUME 7.7 fL (7.4-10.4); MONOCYTES # (AUTO) 0.43 x10^3/uL (0.2-0.8); MONOCYTES % (AUTO) 6 % (2-9); NEUTROPHILS # (AUTO) 3.55 x10^3/uL (1.8-6.8); NEUTROPHILS % (AUTO) 46 % (42-75); PLATELET COUNT 356 x10^3/uL (130-400); RED BLOOD COUNT 4.47 x10^6/uL (4.38-5.82)
[2018-04-12 19:21] LABS: AMPHETAMINE SCREEN, URINE Positive (Negative); BARBITURATE SCREEN, URINE Negative (Negative); BENZODIAZEPINE SCREEN, URINE Positive (Negative); CANNABINOID SCREEN, URINE Positive (Negative); COCAINE SCREEN, URINE Negative (Negative); METHADONE SCREEN, URINE Negative (Negative); OPIATE SCREEN, URINE Positive (Negative)
[2018-04-12] MEDS: NICOTINE 7 MG/24 HR PATCH.TD24 TD SCH (23:00)
[2018-04-12] MEDS ORDERED: ONDANSETRON ODT 4 MG PO PRN (23:00)
[2018-04-12 23:24] VITALS: BP 133/90
[2018-04-13] MEDS: TRAZODONE 150MG TABLET PO SCH ×2 (01:30→21:01)
[2018-04-13] MEDS: VALPROIC ACID 250 MG CAPSULE PO SCH ×3 (01:30→21:02)
[2018-04-13 05:57] VITALS: BP 122/75
[2018-04-13] MEDS: PROPRANOLOL 10 MG TABLET PO SCH ×2 (05:58→17:26)
[2018-04-13 07:30] VITALS: BP 144/85
[2018-04-13] MEDS: SERTRALINE 50MG TABLET PO SCH (09:31)
[2018-04-13] MEDS: ARIPIPRAZOLE 10 MG TABLET PO SCH (09:38)
[2018-04-13] MEDS: GABAPENTIN 300 MG CAPSULE PO PRN (09:41)
[2018-04-13] MEDS: OXYcodone/APAP 5/325MG TABLET PO PRN (17:26)
[2018-04-13 20:06] VITALS: BP 128/76
[2018-04-13] MEDS: NICOTINE 7 MG/24 HR PATCH.TD24 TD SCH ×2 (23:00)
[2018-04-14] MEDS: PROPRANOLOL 10 MG TABLET PO SCH ×2 (05:46→18:05)
[2018-04-14] MEDS: OXYcodone/APAP 5/325MG TABLET PO PRN ×3 (05:46→21:44)
[2018-04-14] MEDS: ARIPIPRAZOLE 10 MG TABLET PO SCH (08:38)
[2018-04-14] MEDS: VALPROIC ACID 250 MG CAPSULE PO SCH ×2 (08:38→20:35)
[2018-04-14] MEDS: SERTRALINE 50MG TABLET PO SCH (08:38)
[2018-04-14] MEDS: DOCUSATE 100 MG CAPSULE PO PRN ×2 (08:50→21:44)
[2018-04-14 08:51] VITALS: BP 111/61
[2018-04-14 18:00] VITALS: BP 131/77
[2018-04-14 18:26] VITALS: BP 131/77
[2018-04-14] MEDS: TRAZODONE 150MG TABLET PO SCH (20:36)
[2018-04-14] MEDS: NICOTINE 7 MG/24 HR PATCH.TD24 TD SCH ×2 (21:43)
[2018-04-15 07:58] VITALS: BP 142/90
[2018-04-15] MEDS: ARIPIPRAZOLE 10 MG TABLET PO SCH (08:06)
[2018-04-15] MEDS: PROPRANOLOL 10 MG TABLET PO SCH ×2 (08:06→20:15)
[2018-04-15] MEDS: SERTRALINE 50MG TABLET PO SCH (08:06)
[2018-04-15] MEDS: VALPROIC ACID 250 MG CAPSULE PO SCH ×2 (08:06→20:14)
[2018-04-15] MEDS: NICOTINE 7 MG/24 HR PATCH.TD24 TD SCH ×2 (08:07)
[2018-04-15] MEDS: OXYcodone/APAP 5/325MG TABLET PO PRN ×3 (08:49→21:15)
[2018-04-15] MEDS: GABAPENTIN 300 MG CAPSULE PO PRN ×2 (10:25→18:13)
[2018-04-15 19:34] VITALS: BP 108/67
[2018-04-15] MEDS: TRAZODONE 150MG TABLET PO SCH (20:14)
[2018-04-16 08:32] VITALS: BP 133/84
[2018-04-16] MEDS: ARIPIPRAZOLE 10 MG TABLET PO SCH (09:01)
[2018-04-16] MEDS: OXYcodone/APAP 5/325MG TABLET PO PRN ×3 (09:01→21:51)
[2018-04-16] MEDS: SERTRALINE 50MG TABLET PO SCH (09:02)
[2018-04-16] MEDS: PROPRANOLOL 10 MG TABLET PO SCH ×2 (09:02→21:51)
[2018-04-16] MEDS: VALPROIC ACID 250 MG CAPSULE PO SCH ×2 (09:02→21:50)
[2018-04-16] MEDS: NICOTINE 7 MG/24 HR PATCH.TD24 TD SCH (09:02)
[2018-04-16] MEDS: GABAPENTIN 300 MG CAPSULE PO PRN (15:23)
[2018-04-16 19:46] VITALS: BP 115/77
[2018-04-16] MEDS ORDERED: TRAZODONE 150MG TABLET ONE (21:48)
[2018-04-16] MEDS: TRAZODONE 150MG TABLET PO SCH (21:59)
[2018-04-17 08:19] VITALS: BP 119/73
[2018-04-17] MEDS: VALPROIC ACID 250 MG CAPSULE PO SCH ×2 (08:28→20:29)
[2018-04-17] MEDS: ARIPIPRAZOLE 10 MG TABLET PO SCH (08:28)
[2018-04-17] MEDS: PROPRANOLOL 10 MG TABLET PO SCH ×2 (08:29→20:30)
[2018-04-17] MEDS: SERTRALINE 50MG TABLET PO SCH (08:29)
[2018-04-17] MEDS: OXYcodone/APAP 5/325MG TABLET PO PRN ×3 (08:37→16:43)
[2018-04-17] MEDS: NICOTINE 7 MG/24 HR PATCH.TD24 TD SCH (12:44)
[2018-04-17] MEDS: GABAPENTIN 300 MG CAPSULE PO PRN (15:20)
[2018-04-17 19:49] VITALS: BP 128/82
[2018-04-17] MEDS: TRAZODONE 150MG TABLET PO SCH (20:30)
[2018-04-17] MEDS ORDERED: TRAZODONE 150MG TABLET PO SCH (21:00)
[2018-04-18] MEDS: GABAPENTIN 300 MG CAPSULE PO PRN ×3 (00:49→15:14)
[2018-04-18] MEDS: OXYcodone/APAP 5/325MG TABLET PO PRN ×2 (00:50→08:42)
[2018-04-18] MEDS: ARIPIPRAZOLE 10 MG TABLET PO SCH (08:29)
[2018-04-18] MEDS: VALPROIC ACID 250 MG CAPSULE PO SCH ×2 (08:29→20:51)
[2018-04-18] MEDS: SERTRALINE 50MG TABLET PO SCH (08:29)
[2018-04-18] MEDS: PROPRANOLOL 10 MG TABLET PO SCH ×2 (08:30→20:51)
[2018-04-18] MEDS: NICOTINE 7 MG/24 HR PATCH.TD24 TD SCH (08:37)
[2018-04-18 08:45] VITALS: BP 128/68
[2018-04-18] MEDS: OXYcodone/APAP 10/325MG TABLET PO PRN (15:14)
[2018-04-18 19:57] VITALS: BP 130/90
[2018-04-18] MEDS: DOCUSATE 100 MG CAPSULE PO PRN (20:50)
[2018-04-18] MEDS: TRAZODONE 150MG TABLET PO SCH (20:56)
[2018-04-19 05:16] LABS: BASOPHILS # (AUTO) 0.04 x10^3/uL (0-0.1); BASOPHILS % (AUTO) 1 % (0-1); EOSINOPHILS # (AUTO) 0.34 x10^3/uL (0-0.4); EOSINOPHILS % (AUTO) 4 % (1-7); LYMPHOCYTES % (AUTO) 35 % (22-44); MD NO; MEAN CORPUSCULAR HEMOGLOBIN 30.1 pg (27.5-34.5); MEAN CORPUSCULAR HGB CONC 33.7 g/dL (33.2-36.2); MEAN CORPUSCULAR VOLUME 89.1 fL (81-97); MEAN PLATELET VOLUME 7.4 fL (7.4-10.4); MONOCYTES # (AUTO) 0.54 x10^3/uL (0.2-0.8); MONOCYTES % (AUTO) 7 % (2-9); NEUTROPHILS # (AUTO) 4.39 x10^3/uL (1.8-6.8); NEUTROPHILS % (AUTO) 54 % (42-75); PLATELET COUNT 287 x10^3/uL (130-400); RED BLOOD COUNT 4.79 x10^6/uL (4.38-5.82); RED CELL DISTRIBUTION WIDTH 14.1 % (9.4-14.8)
[2018-04-19 05:26] LABS: ALBUMIN 3.2 g/dL (3.4-5.0); ANION GAP 9 mmol/L (5-15); CALCIUM 8.8 mg/dL (8.5-10.1); CHLORIDE 104 mmol/L (98-107)
[2018-04-19 07:13] VITALS: BP 135/80
[2018-04-19] MEDS: OXYcodone/APAP 10/325MG TABLET PO PRN ×2 (07:14→15:41)
[2018-04-19] MEDS: GABAPENTIN 300 MG CAPSULE PO PRN ×2 (07:14→15:41)
[2018-04-19] MEDS: DOCUSATE 100 MG CAPSULE PO PRN ×2 (07:19→20:41)
[2018-04-19] MEDS: PROPRANOLOL 10 MG TABLET PO SCH ×2 (07:57→20:37)
[2018-04-19] MEDS: VALPROIC ACID 250 MG CAPSULE PO SCH ×2 (07:57→20:37)
[2018-04-19] MEDS: ARIPIPRAZOLE 10 MG TABLET PO SCH (07:58)
[2018-04-19] MEDS: SERTRALINE 50MG TABLET PO SCH (07:58)
[2018-04-19] MEDS: NICOTINE 7 MG/24 HR PATCH.TD24 TD SCH (08:04)
[2018-04-19 19:31] VITALS: BP 127/71
[2018-04-19] MEDS: TRAZODONE 150MG TABLET PO SCH (20:37)
[2018-04-20] MEDS: OXYcodone/APAP 10/325MG TABLET PO PRN ×3 (00:42→15:44)
[2018-04-20] MEDS: NICOTINE 7 MG/24 HR PATCH.TD24 TD SCH (07:00)
[2018-04-20 08:02] VITALS: BP 132/83
[2018-04-20] MEDS: PROPRANOLOL 10 MG TABLET PO SCH ×2 (08:34→20:20)
[2018-04-20] MEDS: VALPROIC ACID 250 MG CAPSULE PO SCH ×2 (08:34→20:19)
[2018-04-20] MEDS: ARIPIPRAZOLE 10 MG TABLET PO SCH (08:34)
[2018-04-20] MEDS: SERTRALINE 50MG TABLET PO SCH (08:34)
[2018-04-20] MEDS: GABAPENTIN 300 MG CAPSULE PO PRN ×2 (15:44→15:45)
[2018-04-20 20:07] VITALS: BP 124/78
[2018-04-20] MEDS: TRAZODONE 150MG TABLET PO SCH (20:20)
[2018-04-21] MEDS: OXYcodone/APAP 10/325MG TABLET PO PRN ×3 (04:45→20:24)
[2018-04-21 08:11] VITALS: BP 103/72
[2018-04-21] MEDS: ARIPIPRAZOLE 10 MG TABLET PO SCH (08:31)
[2018-04-21] MEDS: VALPROIC ACID 250 MG CAPSULE PO SCH ×2 (08:31→20:17)
[2018-04-21] MEDS: SERTRALINE 50MG TABLET PO SCH (08:32)
[2018-04-21] MEDS: PROPRANOLOL 10 MG TABLET PO SCH ×2 (08:32→20:17)
[2018-04-21] MEDS: NICOTINE 7 MG/24 HR PATCH.TD24 TD SCH (08:45)
[2018-04-21] MEDS: GABAPENTIN 300 MG CAPSULE PO PRN ×2 (14:02→20:17)
[2018-04-21 19:46] VITALS: BP 149/88
[2018-04-21] MEDS: TRAZODONE 150MG TABLET PO SCH (20:17)
[2018-04-22] MEDS: OXYcodone/APAP 10/325MG TABLET PO PRN (05:02)
[2018-04-22] MEDS: VALPROIC ACID 250 MG CAPSULE PO SCH (07:34)
[2018-04-22] MEDS: PROPRANOLOL 10 MG TABLET PO SCH (07:34)
[2018-04-22] MEDS: ARIPIPRAZOLE 10 MG TABLET PO SCH (07:34)
[2018-04-22] MEDS: SERTRALINE 50MG TABLET PO SCH (07:35)
[2018-04-22] MEDS: NICOTINE 7 MG/24 HR PATCH.TD24 TD SCH (07:35)
[2018-04-22 07:50] VITALS: BP 145/76
[2018-04-22] MEDS ORDERED: ARIP10TA33 PO (10:17)
[2018-04-22] MEDS ORDERED: PROP10TA PO (10:17)
[2018-04-22] MEDS ORDERED: VALP250C PO (10:17)
[2018-04-22] MEDS ORDERED: SERT50TA5 PO (10:17)
[2018-04-22] MEDS ORDERED: TRAZ-137 PO (10:17)
== END 2018-04-22 11:55 | disposition home or self-care (01) ==
LOC: ED 18:24 → INTOOBSV 20:57 → EDIP 20:57 → 2N 23:10
PROVIDERS: ADMIT Internal Medicine; ATTEND Internal Medicine
DX: R45.851 Suicidal ideations (principal); F31.9 Bipolar disorder, unspecified; G47.00 Insomnia, unspecified; B19.20 Unspecified viral hepatitis C without hepatic coma; L03.90 Cellulitis, unspecified; F10.20 Alcohol dependence, uncomplicated; F12.10 Cannabis abuse, uncomplicated; F15.23 Other stimulant dependence with withdrawal; I10 Essential (primary) hypertension; F17.200 Nicotine dependence, unspecified, uncomplicated; Z86.011 Personal history of benign neoplasm of the brain
CPT/HCPCS: 36415; 73030; 80048; 80053; 80307; 80329; 82040; 85025; 99284; G0378; G0480

== ENCOUNTER 2018-04-24 08:13 | Emergency (ER) | payer MEDICAID ==
[~2018-04-24] VITALS: Ht 190.5 cm; Wt 138.3 kg
[~2018-04-24 08:13] MED LIST changes: +VALP250C PO
[2018-04-24] MEDS ORDERED: OXYC10TA6 PO (08:45)
[2018-04-24] MEDS ORDERED: SODIUM CHLORIDE FLUSH 10ML SYR IVF ONE (09:00)
[2018-04-24] MEDS ORDERED: ASPIRIN 81 MG TABLET CHEW PO ONE (09:00)
[2018-04-24 09:02] LABS: BASOPHILS # (AUTO) 0.08 x10^3/uL (0-0.1); BASOPHILS % (AUTO) 1 % (0-1); EOSINOPHILS % (AUTO) 1 % (1-7); LYMPHOCYTES # (AUTO) 1.88 x10^3/uL (1-3.4); LYMPHOCYTES % (AUTO) 24 % (22-44); MD NO; MEAN CORPUSCULAR HEMOGLOBIN 30.1 pg (27.5-34.5); MEAN CORPUSCULAR VOLUME 88.6 fL (81-97); MEAN PLATELET VOLUME 7.7 fL (7.4-10.4); MONOCYTES # (AUTO) 0.63 x10^3/uL (0.2-0.8); MONOCYTES % (AUTO) 8 % (2-9); NEUTROPHILS # (AUTO) 5.16 x10^3/uL (1.8-6.8); NEUTROPHILS % (AUTO) 66 % (42-75); PLATELET COUNT 316 x10^3/uL (130-400); RED BLOOD COUNT 4.86 x10^6/uL (4.38-5.82); RED CELL DISTRIBUTION WIDTH 13.8 % (9.4-14.8)
[2018-04-24 09:14] LABS: ALANINE AMINOTRANSFERASE 23 U/L (12-78); ALBUMIN 3.6 g/dL (3.4-5.0); ANION GAP 7 mmol/L (5-15); CALCIUM 9.2 mg/dL (8.5-10.1); CHLORIDE 107 mmol/L (98-107); CREATININE 0.82 mg/dL (0.7-1.3)
[2018-04-24 09:18] LABS: ALKALINE PHOSPHATASE 64 U/L (45-117); BILIRUBIN,TOTAL 0.4 mg/dL (0.2-1.0); TROPONIN I < 0.015 ng/mL (0.000-0.045)
[2018-04-24] MEDS ORDERED: SODIUM CHLORIDE 0.9% 1,000 ML IV ONE (09:57)
[2018-04-24] MEDS ORDERED: ASPIRIN 81 MG TABLET CHEW ONE ×2 (09:59→10:13)
[2018-04-24] MEDS ORDERED: CEFTRIAXONE PMX 1GM/50ML 50 ML IV ONE (10:00)
[2018-04-24] MEDS ORDERED: FAMOTIDINE 20 MG/2 ML ONE (10:13)
[2018-04-24] MEDS ORDERED: DIPHENHYDRAMINE 50 MG/ML, 1ML ONE (10:13)
[2018-04-24] MEDS ORDERED: OMNIPAQUE 350 MG/ML, 100ML BOTTLE ONE (10:16)
[2018-04-24] MEDS ORDERED: DIPHENHYDRAMINE 50 MG/ML, 1ML IVPush ONE (10:30)
[2018-04-24] MEDS ORDERED: FAMOTIDINE 20 MG/2 ML IVPush ONE (10:30)
[2018-04-24 11:41] LABS: TROPONIN I < 0.015 ng/mL (0.000-0.045)
[2018-04-24 11:43] VITALS: BP 110/55
== END 2018-04-24 11:28 | disposition home or self-care (01) ==
LOC: ED 08:38
DX: R07.89 Other chest pain (principal); F31.9 Bipolar disorder, unspecified; I10 Essential (primary) hypertension
CPT/HCPCS: 36415; 70450; 71045; 71275; 80053; 84484; 85025; 85379; 93005; 96374; 96375; 99284; J1200; J3490; Q9967

== ENCOUNTER 2018-09-29 13:07 | Emergency (ER) | payer MEDICAID ==
[~2018-09-29] VITALS: Ht 190.5 cm; Wt 139.6 kg
[~2018-09-29 13:07] MED LIST changes: +OXYC10TA6 PO; -PROP10TA PO; +PROP10TA16 PO; +SERT50TA28 PO; -SERT50TA5 PO
[2018-09-29 13:15] VITALS: BP 153/94
[2018-09-29] MEDS ORDERED: KETOROLAC 30 MG/1 ML IM ONE (13:30)
[2018-09-29] MEDS ORDERED: KETOROLAC 30 MG/1 ML ONE (13:34)
--- NOTE | 2018-09-29 13:39 | NUR ---
PT TO ROOM 7 W/ C/O L KNEE PAIN AFTER LIFTING HEAVY THINGS. PT STATES L KNEE SURGERY IN THE PAST. PT RESTING ON CIERA. JAVIER.
== END 2018-09-29 14:47 | disposition home or self-care (01) ==
LOC: ED 14:41
DX: M25.562 Pain in left knee (principal); I10 Essential (primary) hypertension; F31.9 Bipolar disorder, unspecified; F17.200 Nicotine dependence, unspecified, uncomplicated; Z90.49 Acquired absence of other specified parts of digestive tract
CPT/HCPCS: 73564; 96372; 99283; J1885

== ENCOUNTER 2019-03-25 10:21 | Emergency (ER) | payer MEDICAID ==
[~2019-03-25] VITALS: Ht 190.5 cm; Wt 128.1 kg
[~2019-03-25 10:21] MED LIST changes: -HYDR-3307 PO; +HYDR-36 PO
[2019-03-25 10:22] VITALS: BP 136/82
--- NOTE | 2019-03-25 10:39 | NUR ---
BEDSIDE REPORT TO SO [facility]ILA.
[2019-03-25] MEDS ORDERED: KETOROLAC 30 MG/1 ML IM ONE (11:00)
[2019-03-25] MEDS ORDERED: KETOROLAC 30 MG/1 ML ONE (11:20)
--- NOTE | 2019-03-25 12:06 | NUR ---
patient reports pain improved to 5/10 kari wrap applied to knee and large shoulder immobilizer applied to shoulder (required two shoulder immobilizer as torso swath strap too short)
== END 2019-03-25 12:11 | disposition home or self-care (01) ==
LOC: ED 12:05
DX: S43.402A Unspecified sprain of left shoulder joint, initial encounter (principal); S83.92XA Sprain of unspecified site of left knee, initial encounter; I10 Essential (primary) hypertension; F17.200 Nicotine dependence, unspecified, uncomplicated; Z90.49 Acquired absence of other specified parts of digestive tract; X58.XXXA Exposure to other specified factors, initial encounter; Y93.89 Activity, other specified; Y92.89 Other specified places as the place of occurrence of the external cause; Y99.8 Other external cause status
CPT/HCPCS: 29105; 73030; 73564; 96372; 99283; J1885